=== PATIENT | female | born 1945 | race African-American/Black ===

== ENCOUNTER 2021-05-03 21:55 | Inpatient (IN) | payer MEDICARE ==
[~2021-05-03] VITALS: Ht 170.2 cm; Wt 123.4 kg
[2021-05-03 23:29] LABS: BASOPHILS % 0.3 % (0.0-2.0); EOSINOPHILS % 0.1 % (0.0-5.0); HEMATOCRIT. 43.7 % (36.0-48.0); HEMOGLOBIN. 14.7 g/dL (12.0-16.0); LYMPHOCYTES % 20.5 % (20.0-50.0); MEAN CORPUSCULAR HEMOGLOBIN 29.8 pg (28.0-32.0); MEAN CORPUSCULAR VOLUME 88.4 fL (81.0-99.0); MEAN PLATELET VOLUME 12.4 fl (7.4-10.4); MONOCYTES % 13.5 % (2.0-8.0); NEUTROPHILS % 65.6 % (40.0-76.0); PLATELET 80 x1000/uL (130-400); RED BLOOD CELL COUNT 4.94 mill/uL (4.2-5.4); RED CELL DISTRIBUTION WIDTH 17.5 % (11.6-14.6)
[2021-05-03 23:35] LABS: CHLORIDE 103 mEq/L (98-107)
[2021-05-03 23:55] LABS: INR 2.1; PROTHROMBIN TIME 21.4 sec (9.6-11.0)
[2021-05-04] MEDS ORDERED: ACETAMINOPHEN 325MG TABLET PO ONE (01:30)
[2021-05-04] MEDS ORDERED: SODIUM CHLORIDE 0.9% 500 ML IV NR (02:00)
[2021-05-04 02:08] LABS: CLARITY URINE CLEAR (CLEAR); COLOR URINE YELLOW (YELLOW); KETONES URINE NEGATIVE (NEGATIVE); LEUKOCYTE ESTERASE URINE NEGATIVE (NEGATIVE); NITRITE URINE NEGATIVE (NEGATIVE); OCCULT BLOOD URINE NEGATIVE (NEGATIVE); PROTEIN URINE NEGATIVE (NEGATIVE); UROBILINOGEN URINE 0.2 E.U./dL (0.2-1.0)
[2021-05-04 04:00] VITALS: BP 128/91
[2021-05-04] MEDS ORDERED: METF-414 PO (04:26)
[2021-05-04] MEDS ORDERED: APIX5TAB PO (04:26)
[2021-05-04] MEDS ORDERED: ONDANSETRON HCL 4MG/2ML INJ IV PRN (04:45)
[2021-05-04] MEDS ORDERED: DEXTROSE 50% WATER 50ML SYRINGE IV PRN ×2 (04:45→21:00)
[2021-05-04] MEDS: BLOOD SUGAR DIAGNOSTIC STRIP TEST SCH ×5 (06:44→21:00)
[2021-05-04] MEDS: INSULIN LISPRO 100 UNITS/ML SUBCUT SCH ×4 (06:44→20:30)
[2021-05-04 08:00] VITALS: BP 99/55
[2021-05-04 08:56] LABS: HEMATOCRIT. 45.2 % (36.0-48.0); HEMOGLOBIN. 15.2 g/dL (12.0-16.0); MEAN CORPUSCULAR HEMOGLOBIN 29.6 pg (28.0-32.0); MEAN PLATELET VOLUME 12.6 fl (7.4-10.4); PLATELET 77 x1000/uL (130-400); RED BLOOD CELL COUNT 5.13 mill/uL (4.2-5.4); RED CELL DISTRIBUTION WIDTH 17.5 % (11.6-14.6)
[2021-05-04 09:00] LABS: CHLORIDE 105 mEq/L (98-107)
[2021-05-04] MEDS ORDERED: APIXABAN 5 MG TABLET PO SCH (09:00)
[2021-05-04 09:01] LABS: INR 1.8; PROTHROMBIN TIME 18.5 sec (9.6-11.0)
[2021-05-04] MEDS: FOLIC ACID/VITAMIN B COMP W-C TABLET PO SCH (09:08)
[2021-05-04] MEDS: HYDROCODONE/ACETAMINOPHEN 5/325MG TABLET PO PRN ×2 (09:09→14:30)
[2021-05-04 09:10] LABS: LDL CHOLESTEROL 82 mg/dL (5-100)
[2021-05-04 09:11] LABS: HDL CHOLESTEROL 41 mg/dL (40-59)
[2021-05-04 12:00] VITALS: BP 98/57
[2021-05-04 14:02] LABS: NUCLEATED RED BLOOD CELLS 1 /100 WBC; PLATELET ESTIMATE DECREASED
[2021-05-04] MEDS: DOCUSATE SODIUM 100MG CAPSULE PO SCH ×2 (14:29→17:20)
[2021-05-04 16:00] VITALS: BP 117/70
[2021-05-04] MEDS: SODIUM CHLORIDE 0.9% 1,000 ML IV SCH (17:21)
[2021-05-04 20:00] VITALS: BP 117/88
[2021-05-04] MEDS: ACETAMINOPHEN 325MG TABLET PO PRN (20:31)
[2021-05-04] MEDS ORDERED: CLONIDINE 0.1MG TABLET PO PRN (21:00)
[2021-05-04] MEDS ORDERED: MAGNESIUM/ALUMINUM HYDROXIDE/SIMETHICONE 30ML UDC PO PRN (21:00)
[2021-05-04] MEDS ORDERED: MAGNESIUM CITRATE 300ML SOLUTION PO NR (22:00)
[2021-05-05] VITALS: BP 138/98
[2021-05-05 04:00] VITALS: BP 133/81
[2021-05-05] MEDS: SODIUM CHLORIDE 0.9% 1,000 ML IV SCH ×2 (05:34→16:07)
[2021-05-05 06:59] LABS: HEMATOCRIT. 44.4 % (36.0-48.0); HEMOGLOBIN. 14.5 g/dL (12.0-16.0); MEAN CORPUSCULAR HEMOGLOBIN 29.1 pg (28.0-32.0); MEAN CORPUSCULAR VOLUME 88.6 fL (81.0-99.0); MEAN PLATELET VOLUME 11.2 fl (7.4-10.4); PLATELET 76 x1000/uL (130-400); RED BLOOD CELL COUNT 5.01 mill/uL (4.2-5.4); RED CELL DISTRIBUTION WIDTH 17.3 % (11.6-14.6)
[2021-05-05] MEDS: BLOOD SUGAR DIAGNOSTIC STRIP TEST SCH ×4 (07:10→20:03)
[2021-05-05] MEDS: OMEPRAZOLE 20MG CAPSULE EXTENDED RELEASE PO SCH (07:10)
[2021-05-05] MEDS: INSULIN LISPRO 100 UNITS/ML SUBCUT SCH ×4 (07:40→20:03)
[2021-05-05 08:00] VITALS: BP 107/81
[2021-05-05 08:11] LABS: CHLORIDE 108 mEq/L (98-107)
[2021-05-05 08:18] LABS: LDL CHOLESTEROL 82 mg/dL (5-100)
[2021-05-05 08:19] LABS: HDL CHOLESTEROL 38 mg/dL (40-59)
[2021-05-05 08:21] LABS: T4 FREE 0.97 ng/dL (0.76-1.46)
[2021-05-05] MEDS: DOCUSATE SODIUM 100MG CAPSULE PO SCH ×3 (09:40→16:51)
[2021-05-05] MEDS: FOLIC ACID/VITAMIN B COMP W-C TABLET PO SCH (09:40)
[2021-05-05] MEDS: HYDROCODONE/ACETAMINOPHEN 5/325MG TABLET PO PRN (09:44)
[2021-05-05] MEDS: ACETAMINOPHEN 325MG TABLET PO PRN ×2 (09:52→16:27)
[2021-05-05 12:00] VITALS: BP 110/80
[2021-05-05] MEDS ORDERED: BISACODYL 10MG SUPP PR PRN (13:30)
[2021-05-05] MEDS ORDERED: IPRATROPIUM/ALBUTEROL 0.5-3(2.5)MG/3ML NEB HHN PRN (13:30)
[2021-05-05] MEDS ORDERED: LORAZEPAM 2MG/ML CPJ IV PRN (14:15)
[2021-05-05] MEDS ORDERED: LACTULOSE 20G/30ML UDC PO NR (14:15)
[2021-05-05] MEDS ORDERED: MAGNESIUM 4 G PREMIX 100 ML IV ONE (15:00)
[2021-05-05] MEDS ORDERED: POTASSIUM CHLORIDE INJ 40 MEQ in DEXT 5% WATER 250 ML IV ONE (16:00)
[2021-05-05 16:57] LABS: PLATELET ESTIMATE DECREASED
[2021-05-05 20:00] VITALS: BP 106/77
[2021-05-06] VITALS: BP 116/80
[2021-05-06 04:00] VITALS: BP 117/75
[2021-05-06] MEDS: BLOOD SUGAR DIAGNOSTIC STRIP TEST SCH ×4 (05:48→20:06)
[2021-05-06] MEDS: INSULIN LISPRO 100 UNITS/ML SUBCUT SCH ×4 (05:48→20:06)
[2021-05-06] MEDS: SODIUM CHLORIDE 0.9% 1,000 ML IV SCH ×2 (06:22→17:50)
[2021-05-06] MEDS: OMEPRAZOLE 20MG CAPSULE EXTENDED RELEASE PO SCH (06:22)
[2021-05-06 08:27] VITALS: BP 149/88
[2021-05-06] MEDS: FOLIC ACID/VITAMIN B COMP W-C TABLET PO SCH (08:34)
[2021-05-06] MEDS: ACETAMINOPHEN 325MG TABLET PO PRN (08:34)
[2021-05-06] MEDS: DOCUSATE SODIUM 100MG CAPSULE PO SCH ×2 (08:35→17:00)
[2021-05-06 09:16] LABS: BASOPHILS % 0.2 % (0.0-2.0); EOSINOPHILS % 0.2 % (0.0-5.0); HEMATOCRIT. 46.3 % (36.0-48.0); HEMOGLOBIN. 15.1 g/dL (12.0-16.0); MEAN CORPUSCULAR HEMOGLOBIN 28.9 pg (28.0-32.0); MEAN CORPUSCULAR VOLUME 88.7 fL (81.0-99.0); MEAN PLATELET VOLUME 12.6 fl (7.4-10.4); NEUTROPHILS % 76.6 % (40.0-76.0); PLATELET 93 x1000/uL (130-400); RED BLOOD CELL COUNT 5.22 mill/uL (4.2-5.4); RED CELL DISTRIBUTION WIDTH 17.4 % (11.6-14.6)
[2021-05-06 12:00] VITALS: BP 118/85
[2021-05-06 14:00] LABS: HEPATITIS B SURFACE ANTIGEN NEGATIVE
[2021-05-06 14:30] LABS: HEPATITIS A AB IGM NEGATIVE (NEGATIVE)
[2021-05-06] MEDS: HYDROCODONE/ACETAMINOPHEN 5/325MG TABLET PO PRN (16:03)
[2021-05-06] MEDS ORDERED: AMLO5TAB88 PO (16:17)
[2021-05-06] MEDS ORDERED: FURO-151 PO (16:17)
[2021-05-06] MEDS ORDERED: PRED10TA PO (16:17)
[2021-05-06] MEDS ORDERED: PREG75CA PO (16:17)
[2021-05-06] MEDS ORDERED: COR25 PO (16:17)
[2021-05-06] MEDS ORDERED: ALLO100T PO (16:17)
[2021-05-06 20:00] VITALS: BP 126/87
[2021-05-07] VITALS (15 sets, daily range): BP systolic 105–156; BP diastolic 48–104
[2021-05-07] MEDS: INSULIN LISPRO 100 UNITS/ML SUBCUT SCH ×4 (05:53→21:00)
[2021-05-07] MEDS: SODIUM CHLORIDE 0.9% 1,000 ML IV SCH ×2 (05:53→20:30)
[2021-05-07] MEDS: BLOOD SUGAR DIAGNOSTIC STRIP TEST SCH ×4 (05:53→21:00)
[2021-05-07] MEDS: OMEPRAZOLE 20MG CAPSULE EXTENDED RELEASE PO SCH (05:53)
[2021-05-07] MEDS: FOLIC ACID/VITAMIN B COMP W-C TABLET PO SCH (09:00)
[2021-05-07] MEDS: DOCUSATE SODIUM 100MG CAPSULE PO SCH ×2 (09:00→17:00)
[2021-05-07] MEDS ORDERED: LIDOCAINE HCL 1% 20ML VIAL (Pyxis) INJ ONE (11:29)
[2021-05-07] MEDS: PHYTONADIONE 10MG/ML AMP SUBCUT SCH (15:20)
[2021-05-07] MEDS: HYDROCODONE/ACETAMINOPHEN 5/325MG TABLET PO PRN (15:21)
[2021-05-07 20:58] LABS: INR 1.1; PROTHROMBIN TIME 11.4 sec (9.6-11.0)
[2021-05-08] VITALS (18 sets, daily range): BP systolic 128–167; BP diastolic 82–110
[2021-05-08 06:36] LABS: INR 1.1; PROTHROMBIN TIME 11.3 sec (9.6-11.0)
[2021-05-08 06:37] LABS: CHLORIDE 111 mEq/L (98-107)
[2021-05-08 06:40] LABS: BASOPHILS % 0.2 % (0.0-2.0); EOSINOPHILS % 0.2 % (0.0-5.0); HEMATOCRIT. 40.3 % (36.0-48.0); HEMOGLOBIN. 13.6 g/dL (12.0-16.0); LYMPHOCYTES % 10.9 % (20.0-50.0); MEAN CORPUSCULAR HEMOGLOBIN 29.9 pg (28.0-32.0); MEAN CORPUSCULAR VOLUME 88.6 fL (81.0-99.0); MEAN PLATELET VOLUME 12.1 fl (7.4-10.4); MONOCYTES % 13.7 % (2.0-8.0); PLATELET 88 x1000/uL (130-400); RED BLOOD CELL COUNT 4.55 mill/uL (4.2-5.4); RED CELL DISTRIBUTION WIDTH 17.6 % (11.6-14.6)
[2021-05-08] MEDS: OMEPRAZOLE 20MG CAPSULE EXTENDED RELEASE PO SCH (07:10)
[2021-05-08] MEDS: BLOOD SUGAR DIAGNOSTIC STRIP TEST SCH ×4 (07:19→20:41)
[2021-05-08] MEDS: INSULIN LISPRO 100 UNITS/ML SUBCUT SCH ×4 (07:40→20:41)
[2021-05-08] MEDS: DOCUSATE SODIUM 100MG CAPSULE PO SCH ×2 (08:29→17:19)
[2021-05-08] MEDS: FOLIC ACID/VITAMIN B COMP W-C TABLET PO SCH (08:29)
[2021-05-08] MEDS: PHYTONADIONE 10MG/ML AMP SUBCUT SCH (08:38)
[2021-05-08] MEDS: SODIUM CHLORIDE 0.9% 1,000 ML IV SCH (10:39)
[2021-05-08] MEDS: HYDROCODONE/ACETAMINOPHEN 5/325MG TABLET PO PRN (12:50)
[2021-05-08] MEDS ORDERED: HYDRALAZINE 20MG/ML VIAL IV PRN (15:00)
[2021-05-08] MEDS ORDERED: MORPHINE SULFATE 2 MG/ML CPJ (NOT FOR IM USE) IV PRN (15:15)
[2021-05-08] MEDS ORDERED: LORAZEPAM 2MG/ML CPJ IV PRN (15:15)
[2021-05-08] MEDS: DEXTROSE 5% WATER 1,000 ML IV SCH (15:33)
[2021-05-08] MEDS: DILTIAZEM HCL 60MG TABLET PO SCH ×2 (17:22→23:28)
[2021-05-09] VITALS: BP 169/109
[2021-05-09 04:00] VITALS: BP 133/99
[2021-05-09] MEDS: DEXTROSE 5% WATER 1,000 ML IV SCH ×2 (05:09→18:55)
[2021-05-09] MEDS: DILTIAZEM HCL 60MG TABLET PO SCH ×3 (06:00→18:54)
[2021-05-09] MEDS: BLOOD SUGAR DIAGNOSTIC STRIP TEST SCH ×4 (06:30→21:00)
[2021-05-09] MEDS: INSULIN LISPRO 100 UNITS/ML SUBCUT SCH ×4 (06:30→21:00)
[2021-05-09] MEDS: OMEPRAZOLE 20MG CAPSULE EXTENDED RELEASE PO SCH (06:31)
[2021-05-09 08:00] VITALS: BP 140/94
[2021-05-09 09:08] LABS: BASOPHILS % 0.3 % (0.0-2.0); EOSINOPHILS % 0.4 % (0.0-5.0); HEMATOCRIT. 37.5 % (36.0-48.0); HEMOGLOBIN. 12.6 g/dL (12.0-16.0); LYMPHOCYTES % 12.1 % (20.0-50.0); MEAN CORPUSCULAR HEMOGLOBIN 29.8 pg (28.0-32.0); MEAN CORPUSCULAR VOLUME 88.4 fL (81.0-99.0); MEAN PLATELET VOLUME 10.8 fl (7.4-10.4); MONOCYTES % 14.8 % (2.0-8.0); NEUTROPHILS % 72.4 % (40.0-76.0); PLATELET 103 x1000/uL (130-400); RED BLOOD CELL COUNT 4.24 mill/uL (4.2-5.4); RED CELL DISTRIBUTION WIDTH 17.5 % (11.6-14.6)
[2021-05-09 09:21] LABS: INR 1.1; PARTIAL THROMBOPLASTIN TIME < 21.0 sec (23.4-31.0); PROTHROMBIN TIME 11.4 sec (9.6-11.0)
[2021-05-09 09:24] LABS: CHLORIDE 111 mEq/L (98-107)
[2021-05-09 12:00] VITALS: BP 121/85
[2021-05-09] MEDS: FOLIC ACID/VITAMIN B COMP W-C TABLET PO SCH (13:14)
[2021-05-09] MEDS: DOCUSATE SODIUM 100MG CAPSULE PO SCH ×2 (13:14→18:54)
[2021-05-09 16:00] VITALS: BP 147/95
[2021-05-09 20:00] VITALS: BP 147/91
[2021-05-10] VITALS (61 sets, daily range): BP systolic 83–167; BP diastolic 51–111
[2021-05-10] MEDS: DILTIAZEM HCL 60MG TABLET PO SCH ×5 (00:44→23:31)
[2021-05-10 06:04] LABS: HEMATOCRIT. 40.2 % (36.0-48.0); HEMOGLOBIN. 13.6 g/dL (12.0-16.0); MEAN CORPUSCULAR HEMOGLOBIN 30.1 pg (28.0-32.0); MEAN PLATELET VOLUME 11.4 fl (7.4-10.4); PLATELET 100 x1000/uL (130-400); RED BLOOD CELL COUNT 4.52 mill/uL (4.2-5.4); RED CELL DISTRIBUTION WIDTH 17.2 % (11.6-14.6)
[2021-05-10] MEDS: INSULIN LISPRO 100 UNITS/ML SUBCUT SCH ×4 (06:08→20:41)
[2021-05-10] MEDS: BLOOD SUGAR DIAGNOSTIC STRIP TEST SCH ×4 (06:08→20:41)
[2021-05-10] MEDS ORDERED: GENTAMICIN SULF 40MG/ML 2ML VIAL ONE (06:16)
[2021-05-10] MEDS: OMEPRAZOLE 20MG CAPSULE EXTENDED RELEASE PO SCH (06:17)
[2021-05-10] MEDS ORDERED: LIDOCAINE HCL/EPINEPHRINE 1%-EPI 1:100,000 20 ML VIAL ONE (06:17)
[2021-05-10] MEDS ORDERED: THROMBIN (BOVINE) 5000 UNITS/VIAL TOP ONE (06:17)
[2021-05-10] MEDS: DEXTROSE 5% WATER 1,000 ML IV SCH (06:18)
[2021-05-10 06:32] LABS: CHLORIDE 106 mEq/L (98-107)
[2021-05-10] MEDS ORDERED: ROCURONIUM BROMIDE 10MG/ML VIAL 5ML IV ONE (07:39)
[2021-05-10] MEDS ORDERED: HYDROMORPHONE HCL/PF 2MG/ML (OR) ONE (07:39)
[2021-05-10] MEDS ORDERED: MORPHINE SULFATE 4 MG/ML CPJ (NOT FOR IM USE) IV PRN (07:45)
[2021-05-10] MEDS ORDERED: HYDRALAZINE 20MG/ML VIAL ONE (07:53)
[2021-05-10] MEDS ORDERED: CEFAZOLIN SODIUM 1000MG/VIAL ONE (07:53)
[2021-05-10] MEDS ORDERED: DEXAMETHASONE 4MG/ML 1ML VIAL ONE (07:53)
[2021-05-10] MEDS ORDERED: LABETALOL HCL 5MG/ML VIAL 20ML IV ONE (07:53)
[2021-05-10] MEDS ORDERED: AMIODARONE HCL 50MG/ML 3ML VIAL IV ONE ×2 (07:56→09:14)
[2021-05-10] MEDS ORDERED: ALBUMIN HUMAN 25GM/100ML (25%) IV ONE (07:56)
[2021-05-10] MEDS: DOCUSATE SODIUM 100MG CAPSULE PO SCH ×2 (09:00→17:00)
[2021-05-10] MEDS: FOLIC ACID/VITAMIN B COMP W-C TABLET PO SCH (09:00)
[2021-05-10] MEDS ORDERED: GLYCOPYRROLATE 0.2 MG/ML 2ML VIAL ONE (09:19)
[2021-05-10] MEDS ORDERED: NEOSTIGMINE METHYLSULFATE 1MG/ML 10 ML VIAL ONE (09:19)
[2021-05-10] MEDS ORDERED: NALOXONE HCL 0.4 MG/ML 1ML VIAL ONE (09:39)
[2021-05-10] MEDS: DEXT 5%/LACTATED RINGERS 1,000 ML IV SCH ×3 (10:22→22:12)
[2021-05-10] MEDS: NICARDIPINE 100 MG in SODIUM CHLORIDE 0.9% 60 ML IV PRN ×2 (10:22→22:12)
[2021-05-10] MEDS ORDERED: DIPHENHYDRAMINE INJ IV PRN (10:45)
[2021-05-10] MEDS ORDERED: HYDROMORPHONE PCA 10MG/50ML IV PRN (10:45)
[2021-05-10] MEDS ORDERED: ONDANSETRON INJ IV PRN (10:45)
[2021-05-10] MEDS ORDERED: NALOXONE INJ IV PRN (10:45)
[2021-05-10] MEDS ORDERED: SODIUM CHLORIDE 0.9% 250 ML IV ONE (12:00)
[2021-05-10] MEDS: DEXAMETHASONE 4MG/ML 1ML VIAL IV SCH ×3 (13:08→23:30)
[2021-05-10 13:16] LABS: PLATELET ESTIMATE SLIGHTLY DECREASED
[2021-05-10] MEDS ORDERED: CEFAZOLIN SODIUM 1000MG/VIAL IV SCH (14:00)
[2021-05-10 15:36] LABS: BG CARBOXYHEMOGLOBIN 0.6 % (0.5-1.5); BG DEOXYHEMOGLOBIN 6.3 % (0.0-5.0); BG FRACTION INSPIRED OXYGEN 32; BG HCO3 ACT 28.9 mmol/L (22.0-26.0); BG METHEMOGLOBIN 0.2 % (0.0-1.5); BG OXYGEN SATURATION 93.6 % (92.0-98.5); BG OXYHEMOGLOBIN 92.9 % (94.0-97.0); BG PCO2 44.5 mmHg (35.0-45.0); BG PH 7.431 (7.350-7.450); BG PO2 66.5 mmHg (75.0-100.0); BG SAMPLE SITE ALINE; BG TOTAL HEMOGLOBIN 13.1 g/dL (12.0-18.0); BG VENT MODE NASAL CANNULA
[2021-05-10] MEDS: CEFAZOLIN 1000MG PREMIX 50 ML IV SCH ×2 (15:47→23:30)
[2021-05-10] MEDS: MORPHINE SULFATE 4 MG/ML CPJ (NOT FOR IM USE) IV PRN ×3 (18:28→23:32)
[2021-05-11] VITALS (97 sets, daily range): BP systolic 93–168; BP diastolic 51–98
[2021-05-11] MEDS: MORPHINE SULFATE 4 MG/ML CPJ (NOT FOR IM USE) IV PRN ×7 (04:00→23:29)
[2021-05-11 04:33] LABS: CHLORIDE 105 mEq/L (98-107)
[2021-05-11 04:43] LABS: HEMATOCRIT. 38.5 % (36.0-48.0); HEMOGLOBIN. 13.1 g/dL (12.0-16.0); MEAN CORPUSCULAR HEMOGLOBIN 29.9 pg (28.0-32.0); MEAN CORPUSCULAR VOLUME 87.8 fL (81.0-99.0); MEAN PLATELET VOLUME 11.7 fl (7.4-10.4); PLATELET 109 x1000/uL (130-400); RED BLOOD CELL COUNT 4.38 mill/uL (4.2-5.4); RED CELL DISTRIBUTION WIDTH 17.3 % (11.6-14.6)
[2021-05-11] MEDS: DILTIAZEM HCL 60MG TABLET PO SCH ×4 (06:00→23:57)
[2021-05-11] MEDS: BLOOD SUGAR DIAGNOSTIC STRIP TEST SCH ×4 (06:11→20:14)
[2021-05-11] MEDS: INSULIN LISPRO 100 UNITS/ML SUBCUT SCH ×5 (06:11→20:19)
[2021-05-11] MEDS: DEXAMETHASONE 4MG/ML 1ML VIAL IV SCH ×6 (06:12→23:29)
[2021-05-11] MEDS: DEXT 5%/LACTATED RINGERS 1,000 ML IV SCH ×2 (08:41→20:00)
[2021-05-11] MEDS: CEFAZOLIN 1000MG PREMIX 50 ML IV SCH (08:41)
[2021-05-11] MEDS: DOCUSATE SODIUM 100MG CAPSULE PO SCH ×2 (08:52→17:00)
[2021-05-11] MEDS: FOLIC ACID/VITAMIN B COMP W-C TABLET PO SCH (08:52)
[2021-05-11] MEDS ORDERED: DIGOXIN 500MCG/2ML AMP IV SCH (09:15)
[2021-05-11 12:19] LABS: PLATELET ESTIMATE DECREASED
[2021-05-11] MEDS: NICARDIPINE 100 MG in SODIUM CHLORIDE 0.9% 60 ML IV PRN ×2 (13:11→23:30)
[2021-05-12] VITALS (92 sets, daily range): BP systolic 60–154; BP diastolic 42–111
[2021-05-12] MEDS: MORPHINE SULFATE 4 MG/ML CPJ (NOT FOR IM USE) IV PRN ×4 (03:14→16:58)
[2021-05-12] MEDS: DILTIAZEM HCL 60MG TABLET PO SCH ×3 (05:11→17:06)
[2021-05-12] MEDS: DEXAMETHASONE 4MG/ML 1ML VIAL IV SCH (05:15)
[2021-05-12] MEDS: BLOOD SUGAR DIAGNOSTIC STRIP TEST SCH ×4 (05:33→21:27)
[2021-05-12 05:46] LABS: HEMATOCRIT. 41.9 % (36.0-48.0); HEMOGLOBIN. 13.7 g/dL (12.0-16.0); MEAN CORPUSCULAR HEMOGLOBIN 28.9 pg (28.0-32.0); MEAN CORPUSCULAR VOLUME 88.4 fL (81.0-99.0); RED BLOOD CELL COUNT 4.75 mill/uL (4.2-5.4); RED CELL DISTRIBUTION WIDTH 18.1 % (11.6-14.6)
[2021-05-12 05:47] LABS: CHLORIDE 105 mEq/L (98-107)
[2021-05-12] MEDS: INSULIN LISPRO 100 UNITS/ML SUBCUT SCH ×5 (06:09→21:00)
[2021-05-12] MEDS: FOLIC ACID/VITAMIN B COMP W-C TABLET PO SCH (08:49)
[2021-05-12] MEDS: DOCUSATE SODIUM 100MG CAPSULE PO SCH ×2 (08:49→16:58)
[2021-05-12] MEDS: DEXT 5%/LACTATED RINGERS 1,000 ML IV SCH ×2 (08:50→23:36)
[2021-05-12 09:56] LABS: PLATELET ESTIMATE NORMAL
[2021-05-12 10:11] LABS: MEAN PLATELET VOLUME 11.8 fl (7.4-10.4); PLATELET 145 x1000/uL (130-400)
[2021-05-12] MEDS: NICARDIPINE 100 MG in SODIUM CHLORIDE 0.9% 60 ML IV PRN ×2 (10:44→23:37)
[2021-05-12] MEDS ORDERED: HALOPERIDOL LACTATE 5MG/ML VIAL IM PRN (15:00)
[2021-05-13] VITALS (74 sets, daily range): BP systolic 93–176; BP diastolic 48–108
[2021-05-13] MEDS: DILTIAZEM HCL 60MG TABLET PO SCH ×3 (00:01→05:36)
[2021-05-13 05:45] LABS: HEMATOCRIT. 42.1 % (36.0-48.0); HEMOGLOBIN. 13.6 g/dL (12.0-16.0); MEAN CORPUSCULAR HEMOGLOBIN 28.5 pg (28.0-32.0); MEAN CORPUSCULAR VOLUME 88.2 fL (81.0-99.0); MEAN PLATELET VOLUME 11.8 fl (7.4-10.4); PLATELET 154 x1000/uL (130-400); RED BLOOD CELL COUNT 4.77 mill/uL (4.2-5.4)
[2021-05-13 05:49] LABS: CHLORIDE 107 mEq/L (98-107)
[2021-05-13] MEDS: BLOOD SUGAR DIAGNOSTIC STRIP TEST SCH ×4 (06:13→21:19)
[2021-05-13] MEDS: INSULIN LISPRO 100 UNITS/ML SUBCUT SCH ×4 (06:15→20:52)
[2021-05-13] MEDS: FOLIC ACID/VITAMIN B COMP W-C TABLET PO SCH (09:00)
[2021-05-13] MEDS: DOCUSATE SODIUM 100MG CAPSULE PO SCH ×2 (09:00→16:35)
[2021-05-13] MEDS: DEXT 5%/LACTATED RINGERS 1,000 ML IV SCH ×3 (11:36→21:17)
[2021-05-13] MEDS ORDERED: DILTIAZEM HCL 5MG/ML 5ML VIAL IV SCH (12:00)
[2021-05-13] MEDS ORDERED: SODIUM CHLORIDE 0.9% 250 ML IV SCH (12:00)
[2021-05-13] MEDS: DILTIAZEM HCL 90MG TABLET PO SCH ×3 (12:00→23:57)
[2021-05-13 12:27] LABS: PLATELET ESTIMATE NORMAL
[2021-05-13 12:50] LABS: BG BASE EXCESS 3.8 mmol/L (-2.0-2.0); BG CARBOXYHEMOGLOBIN 0.9 % (0.5-1.5); BG DEOXYHEMOGLOBIN 1.8 % (0.0-5.0); BG HCO3 ACT 27.3 mmol/L (22.0-26.0); BG METHEMOGLOBIN 0.3 % (0.0-1.5); BG OXYGEN SATURATION 98.2 % (92.0-98.5); BG PCO2 37.6 mmHg (35.0-45.0); BG PH 7.479 (7.350-7.450); BG SAMPLE SITE RIGHT RADIAL; BG TOTAL HEMOGLOBIN 14.4 g/dL (12.0-18.0); BG VENT MODE NASAL CANNULA
[2021-05-13 13:37] LABS: CLARITY URINE CLEAR (CLEAR); COLOR URINE YELLOW (YELLOW); KETONES URINE NEGATIVE (NEGATIVE); LEUKOCYTE ESTERASE URINE TRACE (NEGATIVE); NITRITE URINE NEGATIVE (NEGATIVE); OCCULT BLOOD URINE TRACE (NEGATIVE); PH URINE 7.5 (4.5-8.0); PROTEIN URINE 1+ (NEGATIVE); SPECIFIC GRAVITY URINE 1.013 (1.005-1.030)
[2021-05-13] MEDS: CEFTRIAXONE 1,000 MG in DEXTROSE 5% WATER 50 ML IV SCH (14:12)
[2021-05-13] MEDS: ACETAMINOPHEN 325MG TABLET PO PRN (15:59)
[2021-05-14 02:00] VITALS: BP 132/77
[2021-05-14 04:00] VITALS: BP 148/56
[2021-05-14] MEDS: DILTIAZEM HCL 90MG TABLET PO SCH ×4 (05:13→23:48)
[2021-05-14 05:50] VITALS: BP 138/86
[2021-05-14] MEDS: DEXT 5%/LACTATED RINGERS 1,000 ML IV SCH ×2 (07:04→23:49)
[2021-05-14 07:27] LABS: CHLORIDE 106 mEq/L (98-107)
[2021-05-14 07:35] LABS: HEMATOCRIT. 40.5 % (36.0-48.0); HEMOGLOBIN. 13.7 g/dL (12.0-16.0); MEAN CORPUSCULAR HEMOGLOBIN 29.8 pg (28.0-32.0); MEAN CORPUSCULAR VOLUME 88.3 fL (81.0-99.0); MEAN PLATELET VOLUME 11.7 fl (7.4-10.4); PLATELET 129 x1000/uL (130-400); RED BLOOD CELL COUNT 4.59 mill/uL (4.2-5.4); RED CELL DISTRIBUTION WIDTH 17.9 % (11.6-14.6)
[2021-05-14] MEDS: INSULIN LISPRO 100 UNITS/ML SUBCUT SCH ×4 (08:00→21:00)
[2021-05-14] MEDS: BLOOD SUGAR DIAGNOSTIC STRIP TEST SCH ×4 (08:06→21:00)
[2021-05-14] MEDS: CEFTRIAXONE 1,000 MG in DEXTROSE 5% WATER 50 ML IV SCH (09:24)
[2021-05-14] MEDS: DOCUSATE SODIUM 100MG CAPSULE PO SCH ×2 (09:25→17:25)
[2021-05-14] MEDS: FOLIC ACID/VITAMIN B COMP W-C TABLET PO SCH (09:25)
[2021-05-14 12:41] LABS: PLATELET ESTIMATE NORMAL
[2021-05-14] MEDS: APIXABAN 5 MG TABLET PO SCH (17:00)
[2021-05-14] MEDS: MORPHINE SULFATE 4 MG/ML CPJ (NOT FOR IM USE) IV PRN (17:24)
[2021-05-14 19:50] VITALS: BP 126/84
[2021-05-14 22:00] VITALS: BP 142/78
[2021-05-15] VITALS (12 sets, daily range): BP systolic 130–146; BP diastolic 70–88
[2021-05-15] MEDS: DILTIAZEM HCL 90MG TABLET PO SCH ×2 (05:44→12:05)
[2021-05-15] MEDS: MORPHINE SULFATE 4 MG/ML CPJ (NOT FOR IM USE) IV PRN ×2 (05:45→10:00)
[2021-05-15] MEDS: BLOOD SUGAR DIAGNOSTIC STRIP TEST SCH ×2 (07:30→12:05)
[2021-05-15] MEDS: INSULIN LISPRO 100 UNITS/ML SUBCUT SCH ×2 (08:00→12:08)
[2021-05-15 08:08] LABS: HEMOGLOBIN. 13.5 g/dL (12.0-16.0); MEAN CORPUSCULAR HEMOGLOBIN 29.9 pg (28.0-32.0); MEAN CORPUSCULAR VOLUME 88.4 fL (81.0-99.0); MEAN PLATELET VOLUME 11.1 fl (7.4-10.4); PLATELET 131 x1000/uL (130-400); RED BLOOD CELL COUNT 4.53 mill/uL (4.2-5.4); RED CELL DISTRIBUTION WIDTH 17.9 % (11.6-14.6)
[2021-05-15 08:15] LABS: CHLORIDE 108 mEq/L (98-107)
[2021-05-15] MEDS: DOCUSATE SODIUM 100MG CAPSULE PO SCH (08:43)
[2021-05-15] MEDS: CEFTRIAXONE 1,000 MG in DEXTROSE 5% WATER 50 ML IV SCH (08:43)
[2021-05-15] MEDS: FOLIC ACID/VITAMIN B COMP W-C TABLET PO SCH (08:43)
[2021-05-15] MEDS: APIXABAN 5 MG TABLET PO SCH (08:43)
[2021-05-15 13:43] LABS: PLATELET ESTIMATE NORMAL
== END 2021-05-15 16:15 | DRG 471 ==
LOC: ER 21:55 → 8WST 05-04 01:23 → EDBEDREQTM 05-04 01:27 → EDBEDREQDT 05-04 01:27 → EDBEDREQSVC 05-04 01:27 → EDBEDREQ 05-04 01:27 → ENRESERV 05-04 03:20 → MICUSO 05-10 07:50 → 5EST 05-13 20:45
PROVIDERS: ADMIT Internal Medicine; ATTEND Internal Medicine
PROC: 02HV33Z Insertion of Infusion Device into Superior Vena Cava, Percutaneous Approach (ICD-10-PCS; 2021-05-07)
PROC: B548ZZA Ultrasonography of Superior Vena Cava, Guidance (ICD-10-PCS; 2021-05-07)
PROC: B518ZZA Fluoroscopy of Superior Vena Cava, Guidance (ICD-10-PCS; 2021-05-07)
PROC: 30233K1 Transfusion of Nonautologous Frozen Plasma into Peripheral Vein, Percutaneous Approach (ICD-10-PCS; 2021-05-07)
PROC: 30233R1 Transfusion of Nonautologous Platelets into Peripheral Vein, Percutaneous Approach (ICD-10-PCS; 2021-05-07)
PROC: 0RG20A0 Fusion of 2 or more Cervical Vertebral Joints with Interbody Fusion Device, Anterior Approach, Anterior Column, Open Approach (ICD-10-PCS; principal; 2021-05-10)
PROC: 0RB30ZZ Excision of Cervical Vertebral Disc, Open Approach (ICD-10-PCS; 2021-05-10)
PROC: 01N10ZZ Release Cervical Nerve, Open Approach (ICD-10-PCS; 2021-05-10)
DX: M48.02 Spinal stenosis, cervical region (principal); I50.33 Acute on chronic diastolic (congestive) heart failure; G93.41 Metabolic encephalopathy; G82.50 Quadriplegia, unspecified; N17.0 Acute kidney failure with tubular necrosis; D68.9 Coagulation defect, unspecified; I31.3 Pericardial effusion (noninflammatory); I48.20 Chronic atrial fibrillation, unspecified; M47.12 Other spondylosis with myelopathy, cervical region; I13.0 Hypertensive heart and chronic kidney disease with heart failure and stage 1 through stage 4 chronic kidney disease, or unspecified chronic kidney disease; Z68.41 Body mass index [BMI] 40.0-44.9, adult; N28.1 Cyst of kidney, acquired; R29.6 Repeated falls; K59.00 Constipation, unspecified; E86.0 Dehydration; D25.9 Leiomyoma of uterus, unspecified; D69.6 Thrombocytopenia, unspecified; D35.02 Benign neoplasm of left adrenal gland; E11.22 Type 2 diabetes mellitus with diabetic chronic kidney disease; E78.5 Hyperlipidemia, unspecified; E66.01 Morbid (severe) obesity due to excess calories; I16.0 Hypertensive urgency; I27.21 Secondary pulmonary arterial hypertension; I95.9 Hypotension, unspecified; G90.8 Other disorders of autonomic nervous system; M51.26 Other intervertebral disc displacement, lumbar region; M47.817 Spondylosis without myelopathy or radiculopathy, lumbosacral region; M10.9 Gout, unspecified; R33.9 Retention of urine, unspecified; M48.061 Spinal stenosis, lumbar region without neurogenic claudication; I34.0 Nonrheumatic mitral (valve) insufficiency; M48.03 Spinal stenosis, cervicothoracic region; M47.22 Other spondylosis with radiculopathy, cervical region; N18.9 Chronic kidney disease, unspecified; R26.89 Other abnormalities of gait and mobility; K75.9 Inflammatory liver disease, unspecified; M19.90 Unspecified osteoarthritis, unspecified site; Z20.822 Contact with and (suspected) exposure to COVID-19; M47.816 Spondylosis without myelopathy or radiculopathy, lumbar region; Z91.81 History of falling; Z79.01 Long term (current) use of anticoagulants; Z79.899 Other long term (current) drug therapy; Z79.84 Long term (current) use of oral hypoglycemic drugs; Z98.891 History of uterine scar from previous surgery; Z82.49 Family history of ischemic heart disease and other diseases of the circulatory system
CPT/HCPCS: 36415; 36430; 36573; 36600; 71045; 71250; 72040; 72141; 72146; 72148; 74018; 74176; 76000; 76700; 80048; 80053; 80061; 80076; 81003; 82140; 82375; 82805; 82962; 83036; 83605; 83735; 84100; 84145; 84439; 84443; 84484; 84550; 85025; 85049; 86038; 86705; 86709; 86803; 86850; 86870; 86900; 86927; 87077; 87186; 87340; 87426; 88311; 92610; 93005; 93306; 93880; 93970; 95863; 95925; 95926; 95928; 95929; 97110; 97162; 97164; 97166; 97168; 97530; 97535; 99285; C1713; C1725; C1893; J0282; J0360; J0690; J0696; J1100; J1160; J1170; J1580; J1815; J2270; J2310; J2405; J2710; J3430; J3475; J3480; J3490; J7030; J7040; J7050; J7060; J7070; J7121; L0172; P9017; P9034; P9047; A4315; C1762; P9035